=== PATIENT | female | born 2000 | race Caucasian/White ===

== ENCOUNTER 2021-04-20 12:26 | Emergency (ER) | payer SELFPAY ==
--- NOTE | 2021-04-20 13:30 | CT ---
CT facial bones Technique: Multiple axial sections were obtained through the facial bones. Reconstructed coronal and sagittal images were obtained. Findings: Mastoid sinuses appear clear. Paranasal sinuses are clear. Slightly displaced fracture is noted within the right side of the nasal bone. Nondisplaced fracture is noted anteriorly within the left nasal bone. No additional facial bone fracture is seen. Right and left globes are symmetric. No retrobulbar abnormality is seen. Mild soft tissue swelling is noted within the superior cheeks on both sides, more prominent on the right side. Impression: 1. Nasal bone fracture which is slightly displaced on the right side. 2. Mild soft tissue swelling within the upper cheeks. Diagnostic code #3
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
== END 2021-04-20 14:00 | disposition home or self-care (01) ==
LOC: JD.ED 12:26
DX: S02.2XXA Fracture of nasal bones, initial encounter for closed fracture (principal); Y04.0XXA Assault by unarmed brawl or fight, initial encounter
CPT/HCPCS: 70486; 70486-26; 99283; 99284-25

== ENCOUNTER 2021-10-28 02:52 | Emergency (ER) | payer BC ==
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
[2021-10-28] MEDS ORDERED: Ibuprofen 600 MG Tab PO ONE (06:25)
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
== END 2021-10-28 06:52 | disposition home or self-care (01) ==
LOC: JD.ED 02:52
DX: M54.2 Cervicalgia (principal)
CPT/HCPCS: 72125; 99284; A9270

== ENCOUNTER 2022-03-24 16:05 | Emergency (ER) | payer BC ==
[2022-03-24] MEDS ORDERED: Sodium Chloride 0.9% 10 ML Syringe FLUSH PRN (16:32)
== END 2022-03-24 20:17 | disposition home or self-care (01) ==
LOC: JD.ED 16:05
DX: O20.9 Hemorrhage in early pregnancy, unspecified (principal); Z3A.13 13 weeks gestation of pregnancy; Z72.0 Tobacco use
CPT/HCPCS: 36415; 76815; 84702; 85025; 86900; 86901; 99284; J3490; 99283

== ENCOUNTER 2022-09-11 05:29 | Inpatient (IN) | payer BC ==
[~2022-09-11 05:29] MED LIST: Sodium Chloride 0.9% 10 ML Syringe FLUSH PRN
[2022-09-11] MEDS ORDERED: Metoclopramide 10 MG/2 ML SDV IVPUSH ONE (06:30)
[2022-09-11] MEDS ORDERED: Citric Acid/Sodium Citrate Solution 30 ML Cup PO ONE (06:30)
[2022-09-11 06:32] LABS: ESTIMATED GFR 125 mL/min (>60)
[2022-09-11] MEDS: Lactated Ringers 1,000 ML IV SCH ×4 (07:28→21:23)
[2022-09-11] MEDS ORDERED: ceFAZolin 2 GM in Sodium Chloride 0.9% 50 ML IV ONE (07:30)
[2022-09-11] MEDS ORDERED: Oxytocin/Lactated Ringers 10 UNIT/1,000 ML BAG IV SCH (08:00)
[2022-09-11] MEDS ORDERED: fentaNYL 100 MCG/2 ML SDV ONE (08:14)
[2022-09-11] MEDS ORDERED: Morphine PF 10 MG/10 ML SDV ONE (08:14)
[2022-09-11] MEDS ORDERED: Lactated Ringers 1,000 ML ONE (08:31)
[2022-09-11] MEDS ORDERED: ceFAZolin 2 GM Vial ONE (08:36)
[2022-09-11] MEDS ORDERED: Oxytocin 10 Units/1 ML SDV ONE (08:46)
[2022-09-11] MEDS ORDERED: Ondansetron 4 MG/2 ML SDV ONE (08:50)
[2022-09-11] MEDS ORDERED: Bupivacaine 0.75%/D5W 2 ML Amp ONE (08:50)
[2022-09-11] MEDS ORDERED: Sodium Chloride 0.9% 10 ML Syringe FLUSH SCH (09:00)
[2022-09-11] MEDS ORDERED: Ketorolac 30 MG/ML SDV ONE (09:01)
[2022-09-11] MEDS ORDERED: Ondansetron 4 MG/2 ML SDV IVPUSH PRN (09:20)
[2022-09-11] MEDS ORDERED: fentaNYL 100 MCG/2 ML SDV IVPUSH PRN (09:20)
[2022-09-11] MEDS ORDERED: Acetaminophen/oxyCODONE 325-5 MG Tab PO PRN (10:20)
[2022-09-11] MEDS ORDERED: Docusate Sodium 100 MG Cap PO PRN (10:20)
[2022-09-11] MEDS ORDERED: Naloxone 0.4 MG/ML SDV IVPUSH PRN (10:20)
[2022-09-11] MEDS ORDERED: Magnesium Sulfate/Water 6 GM in Premix Bag 1 BAG IV ONE (10:20)
[2022-09-11] MEDS ORDERED: Calcium Gluconate 10% 1 GM/10 ML SDV IV PRN (10:20)
[2022-09-11] MEDS ORDERED: Magnesium Sulfate/Water 40 GM/1,000 ML BAG IV SCH (10:20)
[2022-09-11] MEDS ORDERED: Magnesium Sulfate/Water 4 GM in Premix Bag 1 BAG IV ONE (10:30)
[2022-09-11] MEDS ORDERED: Magnesium Sulfate/Water 2 GM in Premix Bag 1 BAG IV ONE (10:45)
[2022-09-11] MEDS ORDERED: Labetalol 100 MG/20 ML MDV IVPUSH ONE (14:30)
[2022-09-11] MEDS: Ketorolac 30 MG/ML SDV IVPUSH SCH ×2 (16:53→23:23)
[2022-09-11] MEDS: diphenhydrAMINE 50 MG/ML SDV IVPUSH PRN (16:58)
[2022-09-11] MEDS: FLUOXETINE 40 MG PO SCH (17:19)
[2022-09-11] MEDS: VENLAFAXINE 37.5 MG PO SCH (17:19)
[2022-09-11] MEDS ORDERED: NIFEdipine 30 MG Tab.ER PO ONE (18:30)
[2022-09-11] MEDS: QUEtiapine 25 MG Tab PO SCH (21:53)
[2022-09-12] MEDS: Ketorolac 30 MG/ML SDV IVPUSH SCH (04:26)
[2022-09-12] MEDS: diphenhydrAMINE 50 MG/ML SDV IVPUSH PRN (04:32)
[2022-09-12] MEDS: Ibuprofen 600 MG Tab PO PRN ×3 (09:32→21:35)
[2022-09-12] MEDS: FLUOXETINE 40 MG PO SCH (09:32)
[2022-09-12] MEDS: Acetaminophen/oxyCODONE 325-5 MG Tab PO PRN ×3 (09:35→20:23)
[2022-09-12] MEDS: VENLAFAXINE 37.5 MG PO SCH (15:22)
[2022-09-12] MEDS: QUEtiapine 25 MG Tab PO SCH (20:23)
[2022-09-13] MEDS: Acetaminophen/oxyCODONE 325-5 MG Tab PO PRN ×6 (01:40→23:33)
[2022-09-13] MEDS: Ibuprofen 600 MG Tab PO PRN ×2 (05:21→20:53)
[2022-09-13] MEDS: FLUOXETINE 40 MG PO SCH (09:02)
[2022-09-13] MEDS: VENLAFAXINE 37.5 MG PO SCH (09:03)
[2022-09-13] MEDS: QUEtiapine 25 MG Tab PO SCH (20:53)
[2022-09-14] MEDS: Ibuprofen 600 MG Tab PO PRN (03:36)
[2022-09-14] MEDS: Acetaminophen/oxyCODONE 325-5 MG Tab PO PRN ×3 (03:37→12:31)
[2022-09-14] MEDS ORDERED: NIFEdipine 30 MG Tab.ER PO ONE (07:51)
[2022-09-14] MEDS: FLUOXETINE 40 MG PO SCH (08:07)
[2022-09-14] MEDS: VENLAFAXINE 37.5 MG PO SCH (08:08)
== END 2022-09-14 13:05 | disposition home or self-care (01) | DRG 540 ==
LOC: JD.OB 05:29
PROVIDERS: ADMIT Obstetrics & Gynecology; ATTEND Obstetrics & Gynecology
PROC: 10D00Z1 Extraction of Products of Conception, Low, Open Approach (ICD-10-PCS; principal; 2022-09-11)
DX: O32.1XX0 Maternal care for breech presentation, not applicable or unspecified (principal); Z3A.37 37 weeks gestation of pregnancy; Z37.0 Single live birth; O14.14 Severe pre-eclampsia complicating childbirth; O99.334 Smoking (tobacco) complicating childbirth; F17.210 Nicotine dependence, cigarettes, uncomplicated; O99.344 Other mental disorders complicating childbirth; F41.9 Anxiety disorder, unspecified; F32.A Depression, unspecified; O99.62 Diseases of the digestive system complicating childbirth; K21.9 Gastro-esophageal reflux disease without esophagitis
CPT/HCPCS: 01961; 36410; 36415; 59025; 76937; 82565; 82570; 84156; 84450; 84460; 85025; 85027; 86592; 86850; 86900; 86901; 94762; A9270-GY; J0690; J1200; J1885; J2274; J2405; J2590; J2765; J3010; J3475; J7120

== ENCOUNTER 2024-01-17 08:02 | Emergency (ER) | payer BC, MEDICAID | END 2024-01-17 09:38 | disposition home or self-care (01) | LOC: JD.ED 08:02 | DX: I10 Essential (primary) hypertension (principal); F17.210 Nicotine dependence, cigarettes, uncomplicated; E66.9 Obesity, unspecified; K21.9 Gastro-esophageal reflux disease without esophagitis; Z79.899 Other long term (current) drug therapy; Z68.28 Body mass index [BMI] 28.0-28.9, adult | CPT/HCPCS: 93005; 93010; 99282; 99283 ==

== ENCOUNTER 2024-01-27 10:57 | Emergency (ER) | payer SELFPAY ==
[2024-01-27 12:23] LABS: BASOPHILS PERCENT AUTO 0.5 % (0.0-1.0); EOSINOPHILS ABSOLUTE AUTO 0.1 K/mm3 (0.0-0.4); EOSINOPHILS PERCENT AUTO 1.2 % (0.0-6.0); HEMOGLOBIN 12.9 gm/dl (12.0-16.0); IMMATURE GRAN ABSOLUTE AUTO 0.02 K/mm3 (0.00-0.05); IMMATURE GRAN PERCENT AUTO 0.2 % (0.0-0.4); LYMPHOCYTES ABSOLUTE AUTO 2.6 K/mm3 (1.0-4.8); LYMPHOCYTES PERCENT AUTO 31.5 % (24.0-44.0); MEAN CORPUSCULAR HEMOGLOBIN 29.3 pg (28.0-32.0); MEAN CORPUSCULAR HGB CONC 33.1 g/dl (32.0-36.0); MEAN CORPUSCULAR VOLUME 88.6 fl (83.0-99.0); MEAN PLATELET VOLUME 8.7 fl (9.4-12.3); MONOCYTES ABSOLUTE AUTO 0.5 K/mm3 (0.0-0.8); MONOCYTES PERCENT AUTO 5.5 % (0.0-8.0); NEUTROPHILS ABSOLUTE AUTO 5.1 K/mm3 (1.8-7.7); NEUTROPHILS PERCENT AUTO 61.1 % (41.0-71.0); PLATELET COUNT,PLT 375 K/mm3 (150-400); WHITE BLOOD CELL COUNT,WBC 8.35 K/mm3 (3.9-11.3)
[2024-01-27 12:34] LABS: BARBITURATE SCREEN,URINE NEGATIVE (CUTOFF=200); BENZODIAZEPINES SCREEN,URINE PRESUMPTIVE POSITIVE (CUTOFF=150); BUPRENORPHINE SCREEN,URINE NEGATIVE (CUTOFF=10); METHADONE SCREEN, URINE NEGATIVE (CUTOFF=200); METHAMPHETAMINES SCREEN, URINE NEGATIVE (CUTOFF=500); OXYCODONE SCREEN,URINE NEGATIVE (CUT0FF=100); THC SCREEN,URINE 20 NG/ML NEGATIVE (CUTOFF=50)
[2024-01-27 12:51] LABS: AMPHETAMINES SCREEN, URINE NEGATIVE (CUTOFF=500)
[2024-01-27 13:30] LABS: A/G RATIO 0.9 (1-2); ALANINE AMINOTRANSFERASE,ALT 27 U/L (14-59); ALBUMIN 3.5 g/dl (3.4-5.0); ALKALINE PHOSPHATASE 60 U/L (46-116); ANION GAP 11.5 (5-15); ASPARTATE AMNIOTRANSFERASE,AST 17 U/L (15-37); BILIRUBIN TOTAL 0.4 mg/dL (0.2-1.0); BLOOD UREA NITROGEN,BUN 11 mg/dL (7-18); BUN/CREATININE RATIO 12.2 (14-18); CALCIUM 8.8 mg/dL (8.5-10.1); CARBON DIOXIDE,CO2 26 mEq/L (21-32); CHLORIDE,CL 103 mEq/L (98-107); CREATININE 0.9 mg/dL (0.55-1.02); EST CRCL DRUG DOSING (CG) 93.73 mL/min; ESTIMATED GFR 92 mL/min (>60); GLUCOSE RANDOM 127 mg/dL (70-99); POTASSIUM,K 3.5 mEq/L (3.5-5.1); PROTEIN TOTAL,TP 7.5 g/dl (6.4-8.2); SODIUM,NA 137 mEq/L (136-145); TSH 0.785 uIU/mL (0.358-3.74)
[2024-01-27 13:30] LABS: CORONAVIRUS COVID-19 NAA NEGATIVE (NEGATIVE); INFLUENZA A NAA NEGATIVE (NEGATIVE)
[2024-01-27 13:31] LABS: ACETAMINOPHEN 0 ug/mL (10-30); HCG QUANTITATIVE < 1.0 mIU/mL
[2024-01-27] MEDS: Promethazine 25 MG Tab PO SCH (14:49)
[2024-01-27] MEDS: hydrOXYzine HCl 25 MG Tab PO ONE (14:59)
== END 2024-01-27 16:36 ==
LOC: JD.ED 10:57
DX: F32.A Depression, unspecified (principal); F10.10 Alcohol abuse, uncomplicated; F19.10 Other psychoactive substance abuse, uncomplicated; F41.9 Anxiety disorder, unspecified; I10 Essential (primary) hypertension; K21.9 Gastro-esophageal reflux disease without esophagitis; Z79.899 Other long term (current) drug therapy; Z86.16 Personal history of COVID-19
CPT/HCPCS: 0240U; 36415; 80053; 80143; 80179; 80306; 80307; 84443; 84702; 85025; 99285; A9270

== ENCOUNTER 2024-07-27 19:02 | Emergency (ER) | payer MEDICAID ==
[2024-07-27] MEDS: Sodium Chloride 0.9% 1,000 ML IV SCH (20:01)
[2024-07-27] MEDS: HYDROmorphone 0.5 MG/0.5 ML Syringe IVPUSH ONE (20:04)
[2024-07-27] MEDS: Metoclopramide 10 MG/2 ML SDV IVPUSH ONE (20:07)
[2024-07-27] MEDS: diphenhydrAMINE 50 MG/ML SDV IVPUSH ONE (20:07)
[2024-07-27] MEDS: Ketorolac 30 MG/ML SDV IVPUSH ONE (20:09)
[2024-07-27] MEDS: Sodium Chloride 0.9% 10 ML Syringe FLUSH PRN (20:12)
== END 2024-07-27 21:35 | disposition home or self-care (01) ==
LOC: JD.ED 19:02
DX: G43.109 Migraine with aura, not intractable, without status migrainosus (principal); I10 Essential (primary) hypertension; E66.9 Obesity, unspecified; Z68.35 Body mass index [BMI] 35.0-35.9, adult; Z86.16 Personal history of COVID-19
CPT/HCPCS: 96361; 96374; 96375; 99283; J1200; J1885; J2765; J3490; J7030; 99284